=== PATIENT | female | born 1935 | race Caucasian/White ===

== ENCOUNTER 2018-05-12 12:04 | Observation (INO) | payer OTHER ==
--- NOTE | 2018-05-12 12:43 | PDOC ---
History of Present Illness - General Chief Complaint: Lightheaded Stated Complaint: DIZZY Time Seen by Provider: 05/12/18 12:08 History Source: Patient Exam Limitations: No Limitations - History of Present Illness Initial Comments: 05/12/18 12:43 Ms Dubon is an 82 yo F who presents ambulatory to the ER with a complaint of dizziness Pt has a h/o HTN, HLD, RA, She presents to the ER with a complaint of vertigo Pt states that approximately 10 pm last night, she had a sudden onset of vertigo She did deep breathing in order to try to resolve her symptoms but this did not help She awoke this morning with persistent vertigo She was nauseous and vomited Symptoms are worse with standing or sitting up No tinnitus, no headache Her attempted to 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 HEAD, EYES, EARS, NOSE AND THROAT: No: change in vision, ear pain, discharge, sore throat, throat swelling. CARDIOVASCULAR: No: chest pain, lightheadedness, palpitations, syncope RESPIRATORY: No: cough, shortness of breath, wheezing, hemoptysis, stridor. GASTROINTESTINAL: No: nausea, vomiting, diarrhea, abdominal cramping, rectal bleeding, constipation. GENITOURINARY: No: dysuria, hematuria, frequency, urgency, flank pain. MUSCULOSKELETAL: No: back pain, neck pain, joint pain, muscle swelling or pain SKIN AND BREASTS: No: lesions, pallor, rash or easy bruising. NEUROLOGIC: No: headache, vertigo, paresthesias, weakness ENDOCRINE: No: unexplained weight gain or loss HEMATOLOGIC/LYMPHATIC: No: anemia, easy bleeding, swelling nodes. GENERAL: The patient is in no acute distress. HEAD: Normal with no signs of trauma. EYES: PERRLA, EOMI, sclera anicteric, conjunctiva clear. ENT: Ears normal, nares patent, oropharynx clear without exudates. Moist mucous membranes. NECK: Normal range of motion, supple LUNGS: Breath sounds equal, clear to auscultation bilaterally. HEART:Regular rate and rhythm, normal S1 and S2 without murmur, rub or gallop. ABDOMEN: Soft, nontender, normoactive bowel sounds. EXTREMITIES: Normal range of motion, no edema. NEUROLOGICAL: Cranial nerves II through XII grossly intact. Normal speech. No focal neurological deficits. No nystagmus rhomberg ? (+) MUSCULOSKELETAL: Back non-tender to palpation, no CVA tenderness SKIN: Warm, Dry, normal turgor, no rashes or lesions noted. 05/12/18 13:01 Past History - Past Medical History Allergies/Adverse Reactions: Allergies Allergy/AdvReac Type Severity Reaction Status Date / Time codeine Allergy Verified 09/20/17 10:47 Penicillins Allergy Verified 09/20/17 10:47 gold Allergy Uncoded 09/20/17 10:47 Home Medications: Ambulatory Orders Atorvastatin Ca [Lipitor] 5 mg PO HS 09/20/17 Cholecalciferol (Vitamin D3) [Vitamin D3] 800 unit PO DAILY 09/20/17 Folic Acid 1 mg PO DAILY 09/20/17 Losartan/Hydrochlorothiazide [Losartan-Hctz 100-25 mg Tab] 1 each PO DAILY 09/20 Methotrexate Sodium [Methotrexate] 10 mg PO WEEKLY 05/12/18 COPD: No HTN: Yes Hypercholesterolemia: Yes Thyroid Disease: Yes - Suicide/Smoking/Psychosocial Hx Smoking History: Never smoked Hx Alcohol Use: No Drug/Substance Use Hx: No Substance Use Type: None *Physical Exam - Vital Signs Last Vital Signs Temp Pulse Resp BP Pulse Ox 98.0 F 88 18 166/87 100 05/12/18 12:07 05/12/18 12:07 05/12/18 12:07 05/12/18 12:07 05/12/18 12:07 Moderate Sedation - Procedure Monitoring Vital Signs: Procedure Monitoring Vital Signs Temperature 98.0 F 05/12/18 12:07 Pulse Rate 88 05/12/18 12:07 Respiratory Rate 18 05/12/18 12:07 Blood Pressure 166/87 05/12/18 12:07 O2 Sat by Pulse Oximetry (%) 100 05/12/18 12:07 ED Treatment Course - LABORATORY CBC & Chemistry Diagram: 05/12/18 13:10 05/12/18 13:10 Medical Decision Making - Medical Decision Making 05/12/18 13:32 Twelve-lead EKG was performed and reviewed by me. There is normal sinus rhythm with a normal rate of 66 bpm. The axis is normal. The intervals are normal. There are no ST or T wave abnormalities. Impression: Normal twelve-lead EKG 05/12/18 13:50 Laboratory Tests 05/12/18 05/12/18 13:05 13:10 WBC 8.0 Hgb 13.0 Hct 40.1 Plt Count 274 Urine Nitrite Negative Ur Leukocyte Esterase Negative 05/12/18 13:55 Laboratory Tests 05/12/18 05/12/18 13:10 13:10 Sodium 139 Potassium 4.1 Chloride 104 Carbon Dioxide 25 BUN 24 H Creatinine 0.9 Random Glucose 95 Creatine Kinase 111 Troponin I < 0.03 05/12/18 13:57 CT: No evidence of subarachnoid hemorrhage, intra axial or extra-axial fluid collection, supratentorial white matter microangiopathic ischemic changes, normal delacruz-white matter differentiation. No fracture Opacified right posterior ethmoid air cells Hypoplastic seen with sinus Hypoplastic right frontal sinuses Aplastic left frontal sinus Will re assess pt ability to ambulate without vertigo 05/12/18 15:[address] Perera He would prefer pt to be placed on observation I have discussed this with the patient She is amenable to staying Hospitalist contacted *DC/Admit/Observation/Transfer Diagnosis at time of Disposition: Vertigo - Discharge Dispostion Condition at time of disposition: Stable Decision to Admit order: Yes - Referrals Referrals: Matt Perera MD [Primary Care Provider] - - Patient Instructions - Post Discharge Activity
[2018-05-12] MEDS ORDERED: MECLIZINE HCL 25 MG TABLET (FP) PO ONE (12:44)
[2018-05-12] MEDS ORDERED: ONDANSETRON 4 MG/2 ML VIAL IVPUSH ONE (12:48)
[2018-05-12] MEDS ORDERED: MECLIZINE HCL 25 MG TABLET (FP) ONE (13:00)
[2018-05-12] MEDS ORDERED: ONDANSETRON 4 MG/2 ML VIAL ONE (13:01)
[2018-05-12 13:15] LABS: URINE APPEARANCE Clear; URINE BILIRUBIN Negative (NEGATIVE); URINE COLOR Yellow; URINE GLUCOSE (UA) Negative (NEGATIVE); URINE KETONE Negative (NEGATIVE); URINE LEUK ESTERASE Negative (NEGATIVE); URINE NITRITE Negative (NEGATIVE); URINE PROTEIN Negative (NEGATIVE); URINE UROBILINOGEN 0.2 (0.2-1.0)
[2018-05-12 13:30] LABS: URINE RBC 0-2 /hpf (0-3)
[2018-05-12 13:34] LABS: BASO % 0.6 % (0-2.0); EOS % 2.4 % (0-4.5); HEMATOCRIT 40.1 % (32.4-45.2); LYMPH % 17.6 % (8-40); MCH 30.8 pg (25.7-33.7); MCHC 32.5 g/dl (32.0-36.0); MEAN CELL VOLUME 94.7 fl (80-96); MEAN PLT VOLUME 7.3 fl (7.5-11.1); NEUT % 71.4 % (42.8-82.8); PLATELET COUNT 274 K/MM3 (134-434); RBC 4.23 M/mm3 (3.60-5.2); RDW 15.2 % (11.6-15.6)
[2018-05-12 13:42] LABS: ALBUMIN 4.3 g/dl (3.4-5.0); ALK PHOS 101 U/L (45-117); ANION GAP 10 MMOL/L (8-16); BILIRUBIN,TOTAL 1.5 mg/dl (0.2-1); BLOOD UREA NITROGEN 24 mg/dl (7-18); CHLORIDE 104 mmol/L (98-107); CO2 25 mmol/L (21-32); CREATININE 0.9 mg/dl (0.55-1.3); GLUCOSE,RANDOM 95 mg/dl (74-106); POTASSIUM 4.1 mmol/L (3.5-5.1); SGOT/AST 27 U/L (15-37); SGPT/ALT 25 U/L (13-61); SODIUM 139 mmol/L (136-145); TOT PROT 7.3 g/dl (6.4-8.2)
--- NOTE | 2018-05-12 15:39 | HP ---
CHIEF COMPLAINT: Vertigo PCP: Dr. Perera HISTORY OF PRESENT ILLNESS: 82 year-old female with a PMH significant for HTN, HLD, and rheumatoid arthritis. Presents to the ED today with a complaint of vertigo. At approximately 10 pm last night, she had a sudden onset of vertigo. She did deep breathing in order to try to resolve her symptoms but this did not help. She was able to fall asleep. This morning, the symptoms persisted, worse with standing and sitting up. She was nauseous and vomited. 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 Her brought her to the ED. While in the ED patient had another episode of vomiting after sitting up from the CT table. Patient denies fever, sweats, chills. Denies headache, tinnitus. Denies chedst pain, SOB, palpitations. Her last episode of vertigo was 30 years. ER course was notable for: (1) Meclizine x 1; Zofran x 1 Recent Travel: No PAST MEDICAL HISTORY: Hypertension Hyperlipidemia Rheumatoid arthritis PAST SURGICAL HISTORY: Social History: Smoking: no Alcohol: no Drugs: no Family History: Allergies codeine Allergy (Verified 09/20/17 10:47) Penicillins Allergy (Verified 09/20/17 10:47) gold Allergy (Uncoded 09/20/17 10:47) HOME MEDICATIONS: Home Medications Medication Instructions Recorded Atorvastatin Ca [Lipitor] 5 mg PO HS 09/20/17 Cholecalciferol (Vitamin D3) 800 unit PO DAILY 09/20/17 [Vitamin D3] Folic Acid 1 mg PO DAILY 09/20/17 Losartan/Hydrochlorothiazide 1 each PO DAILY 09/20/17 [Losartan-Hctz 100-25 mg Tab] Methotrexate Sodium [Methotrexate] 10 mg PO WEEKLY 05/12/18 REVIEW OF SYSTEMS CONSTITUTIONAL: Absent: fever, chills, diaphoresis, generalized weakness, malaise, loss of appetite, weight change HEENT: Absent: rhinorrhea, nasal congestion, throat pain, throat swelling, difficulty swallowing, mouth swelling, ear pain, eye pain, visual changes CARDIOVASCULAR: Absent: chest pain, syncope, palpitations, irregular heart rate, lightheadedness , peripheral edema RESPIRATORY: Absent: cough, shortness of breath, dyspnea with exertion, orthopnea, wheezing, stridor, hemoptysis GASTROINTESTINAL: Absent: abdominal pain, abdominal distension, nausea, vomiting, diarrhea, constipation, melena, hematochezia GENITOURINARY: Absent: dysuria, frequency, urgency, hesitancy, hematuria, flank pain, genital pain MUSCULOSKELETAL: Absent: myalgia, arthralgia, joint swelling, back pain, neck pain SKIN: Absent: rash, itching, pallor HEMATOLOGIC/IMMUNOLOGIC: Absent: easy bleeding, easy bruising, lymphadenopathy, frequent infections ENDOCRINE: Absent: unexplained weight gain, unexplained weight loss, heat intolerance, cold intolerance NEUROLOGIC: +vertigo, nausea, vomiting Absent: headache, focal weakness or paresthesias, unsteady gait, seizure, mental status changes, bladder or bowel incontinence PSYCHIATRIC: Absent: anxiety, depression, suicidal or homicidal ideation, hallucinations. PHYSICAL EXAMINATION Vital Signs - 24 hr 05/12/18 12:07 Temperature 98.0 F Pulse Rate 88 Respiratory 18 Rate Blood Pressure 166/87 O2 Sat by Pulse 100 Oximetry (%) GENERAL: Awake, alert, and fully oriented, in no acute distress. HEAD: Normal with no signs of trauma. EYES: Pupils equal, round and reactive to light, extraocular movements intact, sclera anicteric, conjunctiva clear. No lid lag. EARS, NOSE, THROAT: Ears normal, nares patent, oropharynx clear without exudates. Moist mucous membranes. NECK: Normal range of motion, supple without lymphadenopathy, JVD, or masses. LUNGS: Breath sounds equal, clear to auscultation bilaterally. No wheezes, and no crackles. No accessory muscle use. HEART: Regular rate and rhythm, normal S1 and S2 without murmur, rub or gallop. ABDOMEN: Soft, nontender, not distended, normoactive bowel sounds, no guarding, no rebound, no masses. No hepatomegaly or splenomegaly. MUSCULOSKELETAL: Normal range of motion at all joints. No bony deformities or tenderness. No CVA tenderness. UPPER EXTREMITIES: 2+ pulses, warm, well-perfused. No cyanosis. No clubbing. No peripheral edema. LOWER EXTREMITIES: 2+ pulses, warm, well-perfused. No calf tenderness. No peripheral edema. NEUROLOGICAL: Cranial nerves II-XII intact. Normal speech. No nystagmus Laboratory Results - last 24 hr 05/12/18 05/12/18 05/12/18 13:05 13:10 13:10 WBC 8.0 RBC 4.23 Hgb 13.0 Hct 40.1 MCV 94.7 MCH 30.8 MCHC 32.5 RDW 15.2 Plt Count 274 MPV 7.3 L Absolute Neuts (auto) 5.8 Neutrophils % 71.4 Lymphocytes % 17.6 Monocytes % 8.0 Eosinophils % 2.4 Basophils % 0.6 Sodium 139 Potassium 4.1 Chloride 104 Carbon Dioxide 25 Anion Gap 10 BUN 24 H Creatinine 0.9 Creat Clearance w eGFR 59.65 Random Glucose 95 Calcium 10.0 Total Bilirubin 1.5 H AST 27 ALT 25 Alkaline Phosphatase 101 Creatine Kinase 111 Troponin I Total Protein 7.3 Albumin 4.3 Urine Color Yellow Urine Appearance Clear Urine pH 7.0 Ur Specific [place] 1.015 Urine Protein Negative Urine Glucose (UA) Negative Urine Ketones Negative Urine Blood Trace-intact H Urine Nitrite Negative Urine Bilirubin Negative Urine Urobilinogen 0.2 Ur Leukocyte Esterase Negative Urine RBC 0-2 05/12/18 13:10 WBC RBC Hgb Hct MCV MCH MCHC RDW Plt Count MPV Absolute Neuts (auto) Neutrophils % Lymphocytes % Monocytes % Eosinophils % Basophils % Sodium Potassium Chloride Carbon Dioxide Anion Gap BUN Creatinine Creat Clearance w eGFR Random Glucose Calcium Total Bilirubin AST ALT Alkaline Phosphatase Creatine Kinase Troponin I < 0.03 Total Protein Albumin Urine Color Urine Appearance Urine pH Ur Specific [place] Urine Protein Urine Glucose (UA) Urine Ketones Urine Blood Urine Nitrite Urine Bilirubin Urine Urobilinogen Ur Leukocyte Esterase Urine RBC ASSESSMENT/PLAN 82 year-old female with a PMH significant for HTN, HLD, and rheumatoid arthritis. Placed on observation for vertigo. Benign positional vertigo --CT head no acute pathology --several episodes of associated vomiting --IV fluids --get orthostatics --check lytes in am --Zofran PRN --meclizine 25mg q6h scheduled Hypertension --continue home dose losartan/HCTZ Hyperlipidemia --continue home Lipitor Rheumatoid arthritis --takes weekly methotrexate FEN Fluids: D51/2 @75mL/hr Electrolytes: replete as indicated Nutrition: clears DVT prophylaxis: expected short stay; oob, ambulation Dispo: continues to require observation. Full code.
[2018-05-12] MEDS ORDERED: ONDANSETRON 4 MG/2 ML VIAL IVPUSH PRN (16:11)
[2018-05-12] MEDS ORDERED: DEXTROSE 5%-0.45% SALINE 1,000 ML IV SCH (16:15)
[2018-05-12 16:28] VITALS: BMI 28.9
[2018-05-12] MEDS ORDERED: ATORVASTATIN CA 10 MG TABLET (FP) PO SCH (22:00)
[2018-05-13] MEDS: MECLIZINE HCL 25 MG TABLET (FP) PO SCH ×2 (00:09→06:28)
[2018-05-13 09:04] LABS: BASO % 0.9 % (0-2.0); EOS % 2.5 % (0-4.5); HEMATOCRIT 35.8 % (32.4-45.2); LYMPH % 18.3 % (8-40); MCH 32.2 pg (25.7-33.7); MCHC 33.6 g/dl (32.0-36.0); MEAN CELL VOLUME 95.8 fl (80-96); MEAN PLT VOLUME 7.7 fl (7.5-11.1); MONO % 6.5 % (3.8-10.2); NEUT % 71.8 % (42.8-82.8); PLATELET COUNT 192 K/MM3 (134-434); RBC 3.73 M/mm3 (3.60-5.2); RDW 15.5 % (11.6-15.6); WHITE BLOOD COUNT 6.9 K/mm3 (4.0-10.8)
--- NOTE | 2018-05-13 09:53 | EKG ---
Test Reason : Blood Pressure : / mmHG Vent. Rate : 066 BPM Atrial Rate : 066 BPM P-R Int : 172 ms QRS Dur : 080 ms QT Int : 434 ms P-R-T Axes : 094 018 030 degrees QTc Int : 454 ms NORMAL SINUS RHYTHM NORMAL ECG WHEN COMPARED WITH ECG OF 25-SEP-2014 11:36, NO SIGNIFICANT CHANGE WAS FOUND Confirmed by MYRNA BRADSHAW MD ([id number]) on 05/13/2018 9:53:03 AM Referred By: Demetria YANG Confirmed By:MYRNA BRADSHAW MD
[2018-05-13] MEDS ORDERED: PATIENT'S OWN MEDICATION (NON-FORMULARY) (Losartan/Hydrochlorothiazide [Losartan-Hctz 100- PO SCH (10:00)
[2018-05-13] MEDS ORDERED: LOSARTAN 50MG/HCTZ 12.5MG 1 TAB (FP) PO SCH (10:00)
[2018-05-13 10:52] LABS: ALBUMIN 3.6 g/dl (3.4-5.0); ALK PHOS 87 U/L (45-117); ANION GAP 10 MMOL/L (8-16); BILIRUBIN,TOTAL 1.4 mg/dl (0.2-1); BLOOD UREA NITROGEN 20 mg/dl (7-18); CALCIUM 9.5 mg/dl (8.5-10); CHLORIDE 112 mmol/L (98-107); CO2 24 mmol/L (21-32); CREATININE 0.9 mg/dl (0.55-1.3); GLUCOSE,RANDOM 107 mg/dl (74-106); SGOT/AST 26 U/L (15-37); SGPT/ALT 25 U/L (13-61); SODIUM 146 mmol/L (136-145); TOT PROT 6.3 g/dl (6.4-8.2)
--- NOTE | 2018-05-13 11:45 | DS ---
Physical Exam: SUBJECTIVE: Patient seen and examined OBJECTIVE: Vital Signs Period Temp Pulse Resp BP Sys/Lindquist Pulse Ox Last 24 Hr 98.0 F-99.0 F 56-88 16-19 104-174/57-99 97-100 PHYSICAL EXAM GENERAL: The patient is awake, alert, and fully oriented, in no acute distress. HEAD: Normal with no signs of trauma. EYES: PERRL, extraocular movements intact, sclera anicteric, conjunctiva clear. ENT: Ears normal, nares patent, oropharynx clear without exudates, moist mucous membranes. NECK: Trachea midline, full range of motion, supple. LUNGS: Breath sounds equal, clear to auscultation bilaterally, no wheezes, no crackles, no accessory muscle use. HEART: Regular rate and rhythm, S1, S2 without murmur, rub or gallop. ABDOMEN: Soft, nontender, nondistended, normoactive bowel sounds, no guarding, no rebound, no hepatosplenomegaly, no masses. EXTREMITIES: 2+ pulses, warm, well-perfused, no edema. NEUROLOGICAL: Cranial nerves II through XII grossly intact. Normal speech, gait not observed. PSYCH: Normal mood, normal affect. SKIN: Warm, dry, normal turgor, no rashes or lesions noted. LABS Laboratory Results - last 24 hr 05/12/18 05/12/18 05/12/18 13:05 13:10 13:10 WBC 8.0 RBC 4.23 Hgb 13.0 Hct 40.1 MCV 94.7 MCH 30.8 MCHC 32.5 RDW 15.2 Plt Count 274 MPV 7.3 L Absolute Neuts (auto) 5.8 Neutrophils % 71.4 Lymphocytes % 17.6 Monocytes % 8.0 Eosinophils % 2.4 Basophils % 0.6 Sodium 139 Potassium 4.1 Chloride 104 Carbon Dioxide 25 Anion Gap 10 BUN 24 H Creatinine 0.9 Creat Clearance w eGFR 59.65 Random Glucose 95 Calcium 10.0 Magnesium Total Bilirubin 1.5 H AST 27 ALT 25 Alkaline Phosphatase 101 Creatine Kinase 111 Troponin I Total Protein 7.3 Albumin 4.3 TSH 1.59 Urine Color Yellow Urine Appearance Clear Urine pH 7.0 Ur Specific [place] 1.015 Urine Protein Negative Urine Glucose (UA) Negative Urine Ketones Negative Urine Blood Trace-intact H Urine Nitrite Negative Urine Bilirubin Negative Urine Urobilinogen 0.2 Ur Leukocyte Esterase Negative Urine RBC 0-2 05/12/18 05/13/18 05/13/18 13:10 07:55 07:55 WBC 6.9 RBC 3.73 Hgb 12.0 Hct 35.8 MCV 95.8 MCH 32.2 MCHC 33.6 RDW 15.5 Plt Count 192 MPV 7.7 Absolute Neuts (auto) 4.9 Neutrophils % 71.8 Lymphocytes % 18.3 Monocytes % 6.5 Eosinophils % 2.5 Basophils % 0.9 Sodium 146 H Potassium 4.0 Chloride 112 H Carbon Dioxide 24 Anion Gap 10 BUN 20 H Creatinine 0.9 Creat Clearance w eGFR 59.65 Random Glucose 107 H Calcium 9.5 Magnesium 2.0 Total Bilirubin 1.4 H AST 26 ALT 25 Alkaline Phosphatase 87 D Creatine Kinase Troponin I < 0.03 Total Protein 6.3 L Albumin 3.6 TSH Urine Color Urine Appearance Urine pH Ur Specific [place] Urine Protein Urine Glucose (UA) Urine Ketones Urine Blood Urine Nitrite Urine Bilirubin Urine Urobilinogen Ur Leukocyte Esterase Urine RBC HOSPITAL COURSE: Date of Admission:05/12/18 Date of Discharge: 05/13/18 Discharge Summary Reason For Visit: VERTIGO Current Active Problems Vertigo (Acute) Condition: Improved - Instructions Diet, Activity, Other Instructions: A prescription has been sent to your pharmacy for meclizine. Take this medication as directed. You should follow up with your primary care provider, Dr. Perera, and advise him of your hospital stay. Return to the emergency department for any new or worsening symptoms. Referrals: Matt Perera MD [Primary Care Provider] - Disposition: HOME - Home Medications Comprehensive Discharge Medication List: Ambulatory Orders Atorvastatin Ca [Lipitor] 5 mg PO HS 09/20/17 Cholecalciferol (Vitamin D3) [Vitamin D3] 800 unit PO DAILY 09/20/17 Folic Acid 1 mg PO DAILY 09/20/17 Losartan/Hydrochlorothiazide [Losartan-Hctz 100-25 mg Tab] 1 each PO DAILY 09/20 Methotrexate Sodium [Methotrexate] 10 mg PO WEEKLY 05/12/18 Meclizine HCl [Antivert -] 25 mg PO Q6H PRN #20 tablet 05/13/18
[2018-05-13 11:54] VITALS: BP 117/71; PULSE 85; TEMP 97.8
--- NOTE | 2018-05-15 11:22 | EKG ---
Test Reason : Blood Pressure : / mmHG Vent. Rate : 075 BPM Atrial Rate : 075 BPM P-R Int : 178 ms QRS Dur : 080 ms QT Int : 398 ms P-R-T Axes : 031 019 059 degrees QTc Int : 444 ms NORMAL SINUS RHYTHM NORMAL ECG WHEN COMPARED WITH ECG OF 12-MAY-2018 13:32, T WAVE VARIATION Confirmed by SAURABH FERNANDEZ MD ([id number]) on 05/15/2018 11:22:32 AM Referred By: Confirmed By:SAURABH FERNANDEZ MD
== END 2018-05-13 13:00 | disposition home or self-care (01) ==
LOC: FER 12:04 → FM/S 15:17
PROVIDERS: ADMIT Internal Medicine; ATTEND Nurse Practitioner Acute Care
PROC: 3E033GC Introduction of Other Therapeutic Substance into Peripheral Vein, Percutaneous Approach (ICD-10-PCS; principal; 2018-05-12)
DX: H81.10 Benign paroxysmal vertigo, unspecified ear (principal); I10 Essential (primary) hypertension; E78.5 Hyperlipidemia, unspecified; M06.9 Rheumatoid arthritis, unspecified; Z88.0 Allergy status to penicillin; Z88.5 Allergy status to narcotic agent; Z91.048 Other nonmedicinal substance allergy status
CPT/HCPCS: 36415; 70450-TC; 80053; 81003; 81015; 82550; 83735; 84443; 84484; 85025; 87086; 93005; 96374; 99285-25; G0378

== ENCOUNTER → 2021-05-12 | Emergency (ER) | payer OTHER, MEDICARE ==
[2021-05-12 08:49] VITALS: BP 162/76; PULSE 85; TEMP 98.3; BMI 26.6
== END | disposition left against medical advice (07) ==
LOC: JER 08:35
DX: S52.571A Other intraarticular fracture of lower end of right radius, initial encounter for closed fracture (principal); W01.0XXA Fall on same level from slipping, tripping and stumbling without subsequent striking against object, initial encounter
CPT/HCPCS: 73090-TC-RT-FY; 73110-TC-RT-FY; 73130-TC-RT-FY; 73200-TC-RT; 99285-25

== ENCOUNTER 2022-06-16 11:38 | Observation (INO) | payer OTHER, MEDICARE ==
[2022-06-16 13:28] LABS: HEMATOCRIT 25.2 % (32.4-45.2); HEMOGLOBIN 8.4 GM/dL (10.7-15.3); MCHC 33.3 g/dl (32.0-36.0); MEAN PLT VOLUME 6.5 fl (7.5-11.1); PLATELET COUNT 473 10^3/uL (134-434); RBC 3.36 M/mm3 (3.60-5.2); RDW 19.4 % (11.6-15.6); WHITE BLOOD COUNT 7.7 K/mm3 (4.0-10.0)
[2022-06-16 13:36] LABS: INR 1.29 (0.83-1.09); PROTHROMBIN TIME (PATIENT) 14.9 SEC (9.7-13.0)
[2022-06-16 13:39] LABS: ACTIVATED PTT 28.4 SECONDS (25.2-36.5)
[2022-06-16 13:59] LABS: ALBUMIN 2.1 g/dl (3.4-5.0); BLOOD UREA NITROGEN 12.3 mg/dL (7-18); CALCIUM 9.1 mg/dL (8.5-10.1)
[2022-06-16 14:02] LABS: CREATININE 0.7 mg/dL (0.55-1.3)
[2022-06-16 14:03] LABS: BILIRUBIN,TOTAL 0.7 mg/dL (0.2-1); TOT PROT 6.5 g/dl (6.4-8.2)
[2022-06-16 14:26] LABS: ANISOCYTOSIS 0; MACROCYTOSIS 0
[2022-06-16 15:08] LABS: EPI CELLS 7 /uL (0-25.1); HYALINE CASTS 0 /uL (0-3.1); PH,URINE 6.5 (5.0-8.0); URINE APPEARANCE CLEAR; URINE BACTERIA 14 /uL (0-1359); URINE BILIRUBIN NEGATIVE (NEGATIVE); URINE COLOR YELLOW; URINE GLUCOSE (UA) NEGATIVE (NEGATIVE); URINE KETONE NEGATIVE (NEGATIVE); URINE LEUK ESTERASE TRACE (NEGATIVE); URINE NITRITE NEGATIVE (NEGATIVE); URINE PROTEIN TRACE (NEGATIVE); URINE RBC 22 /uL (0-23.9); URINE WBC 24 /uL (0-25.8)
[2022-06-16] MEDS: ACETAMINOPHEN 500 MG TABLET (FP) PO PRN (23:01)
[2022-06-16] MEDS: HEPARIN NA (PORCINE) 5,000 UNITS/ML 1ML VIAL SQ SCH (23:02)
[2022-06-16 23:41] VITALS: BMI 22.8
[2022-06-17] MEDS: HEPARIN NA (PORCINE) 5,000 UNITS/ML 1ML VIAL SQ SCH ×2 (09:14→21:29)
[2022-06-17 10:18] LABS: BASO % 0.8 % (0-2.0); EOS % 1.9 % (0-4.5); HEMATOCRIT 27.5 % (32.4-45.2); HEMOGLOBIN 8.8 GM/dL (10.7-15.3); LYMPH % 16.2 % (8-40); MCH 24.3 pg (25.7-33.7); MCHC 32.1 g/dl (32.0-36.0); MEAN CELL VOLUME 75.7 fl (80-96); MEAN PLT VOLUME 6.9 fl (7.5-11.1); MONO % 11.2 % (3.8-10.2); NEUT % 69.9 % (42.8-82.8); PLATELET COUNT 514 10^3/uL (134-434); RBC 3.63 M/mm3 (3.60-5.2); RDW 19.2 % (11.6-15.6); WHITE BLOOD COUNT 6.6 K/mm3 (4.0-10.0)
[2022-06-17 10:34] LABS: CALCIUM 9.1 mg/dL (8.5-10.1)
[2022-06-17 10:38] LABS: CREATININE 0.7 mg/dL (0.55-1.3)
[2022-06-17 11:31] LABS: ANISOCYTOSIS 2+; MACROCYTOSIS 0; OVALOCYTE 2+
[2022-06-18] MEDS: HEPARIN NA (PORCINE) 5,000 UNITS/ML 1ML VIAL SQ SCH ×2 (09:57→21:32)
[2022-06-18 15:27] VITALS: RESP 18
[2022-06-19] MEDS: ACETAMINOPHEN 500 MG TABLET (FP) PO PRN (06:51)
[2022-06-19 09:01] LABS: BASO % 0.9 % (0-2.0); EOS % 2.7 % (0-4.5); HEMATOCRIT 24.3 % (32.4-45.2); LYMPH % 15.2 % (8-40); MCH 24.8 pg (25.7-33.7); MEAN CELL VOLUME 75.2 fl (80-96); MEAN PLT VOLUME 6.8 fl (7.5-11.1); MONO % 11.9 % (3.8-10.2); NEUT % 69.3 % (42.8-82.8); PLATELET COUNT 462 10^3/uL (134-434); RBC 3.23 M/mm3 (3.60-5.2); RDW 19.1 % (11.6-15.6); WHITE BLOOD COUNT 8.3 K/mm3 (4.0-10.0)
[2022-06-19] MEDS: HEPARIN NA (PORCINE) 5,000 UNITS/ML 1ML VIAL SQ SCH ×2 (09:20→21:01)
[2022-06-20] MEDS: ACETAMINOPHEN 500 MG TABLET (FP) PO PRN (04:08)
[2022-06-20 09:13] LABS: HEMATOCRIT 24.6 % (32.4-45.2); MCH 24.7 pg (25.7-33.7); MCHC 32.6 g/dl (32.0-36.0); MEAN CELL VOLUME 75.8 fl (80-96); MEAN PLT VOLUME 6.8 fl (7.5-11.1); PLATELET COUNT 437 10^3/uL (134-434); RBC 3.25 M/mm3 (3.60-5.2); RDW 19.3 % (11.6-15.6); WHITE BLOOD COUNT 9.2 K/mm3 (4.0-10.0)
[2022-06-20 09:16] LABS: INR 1.23 (0.83-1.09); PROTHROMBIN TIME (PATIENT) 14.2 SEC (9.7-13.0)
[2022-06-20 09:19] LABS: ACTIVATED PTT 25.4 SECONDS (25.2-36.5)
[2022-06-20 09:35] LABS: ALBUMIN 1.9 g/dl (3.4-5.0); BLOOD UREA NITROGEN 13.9 mg/dL (7-18)
[2022-06-20 09:38] LABS: CREATININE 0.6 mg/dL (0.55-1.3); PHOSPHOROUS 3.4 mg/dL (2.5-4.9)
[2022-06-20 09:39] LABS: BILIRUBIN,TOTAL 0.6 mg/dL (0.2-1); TOT PROT 6.3 g/dl (6.4-8.2)
[2022-06-20] MEDS: HEPARIN NA (PORCINE) 5,000 UNITS/ML 1ML VIAL SQ SCH ×2 (10:17→22:38)
[2022-06-20 10:52] LABS: ANISOCYTOSIS 2+; MACROCYTOSIS 0
[2022-06-21] MEDS: HEPARIN NA (PORCINE) 5,000 UNITS/ML 1ML VIAL SQ SCH ×2 (09:08→21:14)
[2022-06-21] MEDS ORDERED: IRON SUCROSE INJECTION 200 MG in SODIUM CHLORIDE 90 ML IVPB ONE (11:00)
[2022-06-22] MEDS: HEPARIN NA (PORCINE) 5,000 UNITS/ML 1ML VIAL SQ SCH ×2 (09:46→21:57)
[2022-06-23] MEDS: HEPARIN NA (PORCINE) 5,000 UNITS/ML 1ML VIAL SQ SCH (09:23)
[2022-06-23] MEDS: MULTIVITAMINS (DAILY MVI) TABLET (FP) PO SCH (12:24)
[2022-06-24] MEDS: MULTIVITAMINS (DAILY MVI) TABLET (FP) PO SCH (09:25)
[2022-06-24] MEDS ORDERED: IRON SUCROSE INJECTION 100 MG in SODIUM CHLORIDE 95 ML IVPB ONE (10:20)
[2022-06-24] MEDS ORDERED: POLYETHYLENE GLYCOL (HEALTHYLAX) 3350 17 GM PACKET PO SCH (10:30)
[2022-06-24] MEDS ORDERED: SENNOSIDES 8.6MG TABLET (FP) PO SCH (10:30)
[2022-06-24] MEDS: DOCUSATE SODIUM 100 MG CAPSULE (FP) PO SCH ×2 (11:01→14:52)
[2022-06-24 12:23] LABS: HEMATOCRIT 25.1 % (32.4-45.2); HEMOGLOBIN 8.3 GM/dL (10.7-15.3); MCH 25.1 pg (25.7-33.7); MCHC 33.1 g/dl (32.0-36.0); MEAN CELL VOLUME 75.8 fl (80-96); MEAN PLT VOLUME 6.6 fl (7.5-11.1); PLATELET COUNT 502 10^3/uL (134-434); RBC 3.32 M/mm3 (3.60-5.2); WHITE BLOOD COUNT 7.6 K/mm3 (4.0-10.0)
[2022-06-24 12:42] LABS: CALCIUM 9.7 mg/dL (8.5-10.1)
[2022-06-24 12:43] LABS: BLOOD UREA NITROGEN 16.8 mg/dL (7-18)
[2022-06-24 12:46] LABS: CREATININE 0.6 mg/dL (0.55-1.3)
[2022-06-24 12:48] LABS: BILIRUBIN,TOTAL 0.8 mg/dL (0.2-1); TOT PROT 6.6 g/dl (6.4-8.2)
[2022-06-24 12:50] LABS: ANISOCYTOSIS 3+; MACROCYTOSIS 0
[2022-06-24 19:38] VITALS: BP 121/69; PULSE 91; TEMP 97.9
== END 2022-06-24 19:45 ==
LOC: JER 11:38 → UNDOADMOB 15:11 → INTOOBSV 15:11 → JERBED 15:11 → J5S 22:26
PROVIDERS: ADMIT Internal Medicine
PROC: 3E033GC Introduction of Other Therapeutic Substance into Peripheral Vein, Percutaneous Approach (ICD-10-PCS; principal; 2022-06-16)
DX: D50.9 Iron deficiency anemia, unspecified (principal); D63.8 Anemia in other chronic diseases classified elsewhere; R53.1 Weakness; R26.2 Difficulty in walking, not elsewhere classified; R29.6 Repeated falls; R62.7 Adult failure to thrive; Z68.22 Body mass index [BMI] 22.0-22.9, adult; E43 Unspecified severe protein-calorie malnutrition; I10 Essential (primary) hypertension; E78.5 Hyperlipidemia, unspecified; F03.90 Unspecified dementia, unspecified severity, without behavioral disturbance, psychotic disturbance, mood disturbance, and anxiety
CPT/HCPCS: 0241U-QW; 36415; 70450-TC; 71250-TC; 72125-TC; 72128-TC; 80048; 80053; 81003; 82607; 82728; 82746; 83010; 83540; 83550; 83615; 83735; 84100; 84155; 84165; 84443; 84466; 85025; 85045; 85610; 85730; 87086; 93005; 93010; 96365; 97116-GP; 97162-GP; 99285-25; C9803-CS; G0378; J1644; J1756; U0003; U0005